=== PATIENT | female | born 1990 | race Two or more races ===

== ENCOUNTER 2024-06-07 22:51 | Emergency (ER) | payer MEDICAID, SELFPAY ==
[2024-06-07 23:00] VITALS: BP 129/84; PULSE 99; RESP 20; TEMP 36.9; O2SAT 97
--- NOTE | 2024-06-07 23:05 | PD.EDRME ---
Rapid Medical Screening Exam RME Arrival date/time: 06/07/24 22:51 34 year old female present to ED for c/o of abd pain today I have greeted and performed a focused initial assessment of this patient. A comprehensive ED assessment and evaluation of the patient, analysis of all test results, and completion of the medical decision making process will be conducted by additional ED providers. Chief Complaint: Abdominal Pain Time Seen by Provider: 06/07/24 22:53 Vital signs: Vital Signs Temperature 98.5 F 06/07/24 23:00 Pulse Rate 99 06/07/24 23:00 Respiratory Rate 20 06/07/24 23:00 Blood Pressure 129/84 06/07/24 23:00 Pulse Oximetry (%) 97 06/07/24 23:00 Oxygen Delivery Method Room Air 06/07/24 23:00
[2024-06-07] MEDS: ONDANSETRON ODT 4 MG TABRAP PO (23:20)
[2024-06-07] MEDS: MG HYD/AL HYD/SIME (Maalox Reg) SUSP 30 ML UDC PO (23:20)
[2024-06-07] MEDS: METOCLOPRAMIDE INJ 5 MG/ML VIAL 2 ML 10 MG IM (23:21)
--- NOTE | 2024-06-07 23:21 | XR_ITS ---
Examination: Abdomen sonogram, Limited Date and time of exam: June 08, 2024 0220 hrs. Indications: Generalized abdominal pain and abdominal distention beginning one week ago Technique: Real-time evans scale transabdominal sonographic images of the upper abdomen obtained. Findings: Contracted gallbladder Small sludge balls in the gallbladder, the largest 5 mm No definite gallstones Gallbladder wall 0.3 cm Common bile duct 0.3 cm Pancreatic head 3.0 cm Liver 16.8 cm fatty infiltration 18 mm area of focal fatty sparing Normal hepatopedal portal venous flow Patent IVC Impression: Recommend repeating the gallbladder study with fasting Negative for cholelithiasis, suspicious for gallbladder sludge Fatty liver with focal areas of fatty sparing
[2024-06-07 23:58] LABS: Basophils # (Auto) 0.1 Thou/mm3 (0.0-0.2); Basophils % (Auto) 1 % (0-2.5); Eosinophils # (Auto) 0.2 Thou/mm3 (0.0-0.5); Eosinophils % (Auto) 2 % (0-10); Hematocrit 42.2 % (36.0-46.0); Hemoglobin 14.1 g/dL (12.0-16.0); Immature Granulocytes % (Auto) 0 % (0-0); Immature Granulocytes Auto 0.03 Thou/mm3 (0.00-0.00); Lymphocytes # (Auto) 2.9 Thou/mm3 (1.0-4.8); Lymphocytes % (Auto) 28 % (10-50); Mean Corpuscular HGB Conc 33.4 g/dl (31.0-37.0); Mean Corpuscular Hemoglobin 28.8 pg (25.0-35.0); Mean Corpuscular Volume 86 fL (80-100); Monocytes # (Auto) 0.2 Thou/mm3 (0.0-0.8); Monocytes % (Auto) 2 % (0-12); Neutrophils % (Auto) 68 % (37-80); Nucleated Red Blood Cell % 0 /100 WBC (0); Platelet Count 315 Thou/mm3 (140-440); RDW Standard Deviation 40.1 fL (36.4-46.3); Red Blood Count 4.89 Miln/mm3 (4.00-5.20); White Blood Count 10.4 Thou/mm3 (3.6-11.0)
[2024-06-08] MEDS: KETOROLAC INJ 60 MG/2 ML VIAL 30 MG IM (00:04)
[2024-06-08 00:23] LABS: HCG,Qualitative Serum Negative
[2024-06-08 00:25] LABS: Alanine Aminotransferase 44 U/L (10-49); Albumin, Serum 4.8 gm/dL (3.5-5.0); Albumin/Globulin Ratio 1.8 (1.2-2.2); Alkaline Phosphatase 75 U/L (46-116); Anion Gap 8 (7-16); Aspartate Amino Transferase 29 U/L (0-34); BUN/Creatinine Ratio 11 Ratio (12-20); Bilirubin,Total 0.2 mg/dL (0.3-1.2); Blood Urea Nitrogen 11 mg/dL (9-23); Calcium 9.4 mg/dL (8.3-10.6); Calcium (Corrected) 9.4 mg/dL (8.5-10.1); Carbon Dioxide 26.9 mMol/L (20.0-31.0); Chloride 103 mMol/L (98-107); Globulin 2.6 gm/dL (2.3-3.5); Glucose 137 mg/dL (74-106); Lipase 42 U/L (12-53); Osmolality,Calculated 277 (275-295); Potassium 3.4 mMol/L (3.4-5.1); Sodium 138 mMol/L (136-145); Total Protein 7.4 gm/dL (5.7-8.2); eGFR > 60 See Note
[2024-06-08 01:23] LABS: Collection Type, Urine Voided; RBC,Urine 0 /hpf (0-3)
[2024-06-08 01:32] LABS: Bacteria,Urine 1+; Bilirubin,Urine Negative (Negative); Blood,Urine Negative (Negative); Clarity,Urine Turbid (Clear/Hazy); Color,Urine Yellow (Lt Yel-Yel); Glucose, Urine Negative (Negative); Ketones,Urine Negative (Negative); Leukocyte Esterase,Urine Positive (Negative); Nitrite,Urine Negative (Negative); Protein,Urine 1+ (Neg - Trace); Specific Gravity,Urine 1.029 (1.001-1.035); Squamous Epithelial Cell,Urine 11 /hpf (0-5); WBC,Urine 9 /hpf (0-5)
--- NOTE | 2024-06-08 03:47 | PRELIM_ITS ---
Right upper quadrant abdominal ultrasound. June 08, 2024 0220 hours Clinical history: Abdomen pain hx of gallstone Comparison: NoneFindings:The liver measures 16.8 cm and demonstrates heterogeneous echogenicity. No intrahepatic biliary ductal dilatation. There is a 1.8 x 0.8 x 1.1 cm hypoechoic are a on the right adjacent to the gallbladder, likely representing focal fatty sparing. The gallbladder is contracted. There are gallbladder polyps versus sludge balls within the gallbladder lumen, the lar gest measuring 0.5 cm. No definitive gallbladder calculus, wall thickening or pericholecystic fluid i s demonstrated. Sonographic Calzada sign is negative as per the technologist's note. The common bile d uct is normal in caliber at 2.5 mm. The pancreas is obscured by overlying bowel gas and not well demo nstrated. Impression:Contracted gallbladder. No definitive sonographic evidence of cholelithiasis, ac jing cholecystitis or biliary obstruction. Gallbladder polyps versus sludge as described. Fatty infil tration of the liver with focal fatty sparing areas. Recommend clinical and laboratory correlation. Report Electronically Signed By: Anu Johnson 06/08/2024 3:46:59 AM [EST]
[2024-06-08 04:58] VITALS: BP 96/60; PULSE 93; RESP 16; TEMP 37; O2SAT 97
[2024-06-08 07:36] VITALS: BP 109/80; PULSE 98; RESP 18; TEMP 37.1; O2SAT 99
--- NOTE | 2024-06-08 07:43 | EDNOTE_ITS ---
ED Abdominal Pain RME/HPI General Chief Complaint: Abdominal Pain Stated complaint: ABDOMINAL PAIN Time seen by provider: 06/07/24 22:53 Arrival date/time: 06/07/24 22:51 RME / HPI RME / HPI narrative: 06/07/24 22:51 34 year old female present to ED for c/o of abd pain today I have greeted and performed a focused initial assessment of this patient. A comprehensive ED assessment and evaluation of the patient, analysis of all test results, and completion of the medical decision making process will be conducted by additional ED providers. DR. MCCARTHY MAIN ED EVALUATION: 34 year old female presents to the Emergency Department with complaint of epigastric pain for 3 days, worse yesterday. Pain is described as aching and rated mild to moderate in severity. Associated symptoms constipation, last bowel movement yesterday morning, little. Patient denies any of the following: nausea, vomiting, diarrhea, or any other symptoms at this time. PMHx: GERD, gallstones. Social Hx: No tobacco, alcohol, or substance use. Related Data Previous Rx's ?Medication ?Instructions ?Recorded famotidine 40 mg tablet (Pepcid) 40 mg PO QDAY #30 tabs 06/08/24 sulfamethoxazole 800 1 tab PO BID 7 days #14 tabs 06/08/24 mg-trimethoprim 160 mg tablet (Bactrim DS) Allergies Allergy/AdvReac Type Severity Reaction Status Date / Time No Known Allergies Allergy Verified 06/07/24 22:57 Review of Systems Review of Systems Systems Reviewed: All systems reviewed, normal except as documented Narrative Review of Systems: GEN: No fever, no chills, no weight loss EYES: No discharge, no visual changes, no pain HEENT: No ear pain, no congestion, no sore throat PULM: No shortness of breath, no cough, no congestion CV: No chest pain, no dyspnea on exertion, no palpitations GI: No nausea, no vomiting, no diarrhea, + epigastric pain, + constipation : No frequency, no urgency and no dysuria MUSC/SKEL: No joint pain, no back pain SKIN: No rash PSYCH: No hallucinations, no depression HEME/LYMPH: No easy bleeding or bruising tendencies NEURO: No weakness, no headache Past Medical History Past Medical History CARDIAC: Negative Congestive Heart Failure RESPIRATORY: Negative Chronic Obstructive Pulmonary Disease (COPD) GASTROINTESTINAL: Positive Gall Bladder Disease (GALL STONES) GENITOURINARY: Negative Renal Disease ENDOCRINE: Negative Diabetes Mellitus Type 1 or Diabetes Mellitus Type 2 Social History SMOKING STATUS: Never smoker SUBSTANCE USE: does not use ALCOHOL: Never ED Exam Narrative Physical exam: GENERAL APPEARANCE: Well hydrated, well nourished, in no acute distress. VITALS: All vitals were reviewed and the pulse ox is 99% on room air which is normal according to my interpretation. HEENT: Normocephalic, atramatic, EOMI, EACs are patent. There is no bulge or retraction. Throat without erythema or exudate. Moist oromucosa. No jaundice NECK: Supple, no JVD or bruits. CARDIOVASCULAR: Heart regular without S3-S4 or murmur. No rubs or gallops. LUNGS/CHEST: Clear to auscultation bilaterally. No rales, rhonchi, or wheezing. Normal inspection. ABDOMEN: Mild tenderness in the epigastric area. Normal bowel sounds. No pulsatile masses. No rebound, rigidity, or guarding. No incarcerated hernia. EXTREMITIES: No edema, clubbing, or cyanosis. Intact CSM. Normal inspection and palpation. SKIN: Warm and dry without rashes. Normal inspection. MUSCULOSKELETAL: No gross deformity, full ROM all extremities. Normal inspection. NEURO: Alert and oriented x3. Cranial nerves II through XII grossly intact. There are no other motor or sensory deficits noted. PSYCHIATRIC: Normal mood and affect. No psychosis. Course Quality Measures none Orders Category Date Time Status US abdomen limited Stat Exams 06/07/24 23:21 Completed CBC Stat Lab 06/07/24 23:40 Completed CMP [Comprehensive Metabolic Panel] Stat Lab 06/07/24 23:40 Completed HCG,Qualitative Serum Stat Lab 06/07/24 23:40 Completed Lipase Stat Lab 06/07/24 23:40 Completed UA [Urinalysis] Stat Lab 06/08/24 00:40 Completed Ketorolac Inj [Toradol Inj] Med 06/07/24 23:22 Discontinued 30 mg IM X1 ONE Metoclopramide Inj [Reglan Inj] Med 06/07/24 23:05 Discontinued 10 mg IM X1 ONE Ondansetron Odt [Zofran Odt] Med 06/07/24 23:05 Discontinued 4 mg PO X1 ONE mg Hyd/Al Hyd/Kati Susp [Maalox Susp] Med 06/07/24 23:05 Discontinued 30 ml PO X1 ONE Vital Signs Vital signs: Vital Signs Temperature 98.5 F 06/07/24 23:00 Pulse Rate 99 06/07/24 23:00 Respiratory Rate 20 06/07/24 23:00 Blood Pressure 129/84 06/07/24 23:00 Pulse Oximetry (%) 97 06/07/24 23:00 Oxygen Delivery Method Room Air 06/07/24 23:00 Abdominal Pain [facility] MDM Narrative [facility] Narrative:: I, Ana Binu, am scribing for and in the presence of Dr. Mccarthy. CBC negative. CMP and lipase negative. UA is positive for UTI. test is negative. Ultrasound report is available as below. On exam there is very minimal discomfort over the epigastrium. Negative Calzada. Negative McBurney. No flank tender. Nondistention. No surgical sign. The patient will be di scharged home. I will put her on some antibiotic for the UTI. Also put the patient on Pepcid for the stomach pain. She is advised to follow-up closely with her PMD in the next couple of days for further care and recheck. Return to the emergency department if condition worsens or if new symptoms develop especially fever. Patient data External records reviewed:: None (no previous visits) Clinical information provided by:: patient Social determinants that could affect healthcare access:: none Patient has the following chronic illnesses:: GERD, gallstones. How is presenting disease/condition affected by chronic disease/condition?: exacerbated by Evaluation data The following diagnostics were reviewed and interpreted by me:: lab results and radiology exam(s) Lab and/or radiology exams considered but not ordered:: none Interpretation Summary: See above under MDM narrative. RADIOLOGY Procedure(s): US abdomen limited Accession Number(s): [id number] cc: Ray White MD; Steve English MD; Fermin Mccarthy PA-C~ Examination: Abdomen sonogram, Limited Date and time of exam: June 08, 2024 0220 hrs. Indications: Generalized abdominal pain and abdominal distention beginning one week ago Technique: Real-time evans scale transabdominal sonographic images of the upper abdomen obtained. Findings: Contracted gallbladder Small sludge balls in the gallbladder, the largest 5 mm No definite gallstones Gallbladder wall 0.3 cm Common bile duct 0.3 cm Pancreatic head 3.0 cm Liver 16.8 cm fatty infiltration 18 mm area of focal fatty sparing Normal hepatopedal portal venous flow Patent IVC Impression: Recommend repeating the gallbladder study with fasting Negative for cholelithiasis, suspicious for gallbladder sludge Fatty liver with focal areas of fatty sparing Dictated By: Steve English MD Medications / Prescriptions Medications or Prescriptions considered but not ordered:: none Medication administrations:: Medication Administration History Discontinued Medications Al Hydrox/Mg Hydrox/Simethicone (Mg Hyd/Al Hyd/Kati (Maalox Reg) Susp 30 Ml Udc) 30 ml PO X1 ONE Stop: 06/07/24 23:06 Last Admin: 06/07/24 23:20 Dose: 30 ml Documented By: OA Ketorolac Tromethamine (Ketorolac Inj 60 Mg/2 Ml Vial) 30 mg IM X1 ONE Stop: 06/07/24 23:23 Last Admin: 06/08/24 00:04 Dose: 30 mg Documented By: OA Metoclopramide HCl (Metoclopramide Inj 5 Mg/Ml Vial 2 Ml) 10 mg IM X1 ONE; Protocol Stop: 06/07/24 23:06 Last Admin: 06/07/24 23:21 Dose: 10 mg Documented By: OA Ondansetron HCl (Ondansetron Odt 4 Mg Tabrap) 4 mg PO X1 ONE; Protocol Stop: 06/07/24 23:06 Last Admin: 06/07/24 23:20 Dose: 4 mg Documented By: OA see above Consultations Consultation(s) initiated? (list below): No Diagnosis Differential diagnosis abdominal pain: abdominal pain, gastroenteritis and pancreatitis Most likely diagnosis given after review of the tests above:: Abdominal pain Urinary tract infection Gallbladder sludge Gastritis Admission Indicated Admission indicated?: not indicated Admission Request Was there a request for admission?: No Disposition Plan Disposition Plan: Discharge Discharge Attestation Discharge Attestation: The patient and all family members were given an opportunity to ask questions and understood the discharge instructions. Discharge instructions specifically effects, indications for sooner follow up or return to the emergency department, and the expected course of current diagnosis. Patient condition: Stable Discharge Plan Plan Patient Disposition: HOME (Self Care) Disposition Comment: Stable for DC home Prescriptions/Referrals Prescriptions/Med Rec: New sulfamethoxazole-trimethoprim [Bactrim DS] 800-160 mg tablet 1 tab PO BID 7 Days Qty: 14 0RF famotidine [Pepcid] 40 mg tablet 40 mg PO QDAY Qty: 30 0RF Referrals: Ray White MD [Primary Care Provider] - In 1 week Problem List Clinical Impression: Abdominal pain, Urinary tract infection Patient/Caregiver Discharge Instructions Education Materials: Abdominal Pain, ED CYSTITIS Female Adult Additional Instructions: You have bladder infection. Take antibiotic as prescribed. You have a stomach inflammation please take Pepcid. He can also take Maalox for the stomach pain. Ultrasound showing an early stone formation in the gallbladder. Please follow- up with your medical doctor in 3 days. Return the nearest emergency department if condition worsens or if new symptoms develop especially fever. Print Language: Austrian Stand Alone Forms: [employer] Award Info., Patient Portal Info Letter
[2024-06-08 08:23] VITALS: BP 102/63; PULSE 89; RESP 16; TEMP 36.6; O2SAT 96
[2024-06-08 08:51] VITALS: BP 102/63; PULSE 77; RESP 16; TEMP 36.4; O2SAT 100
== END 2024-06-08 08:51 | disposition home or self-care (01) ==
PROVIDERS: Physician Assistant; Emergency Provider Emergency Medicine; PCP Student in an Organized Health Care Education/Training Program
DX: N39.0 Urinary tract infection, site not specified (principal); K59.00 Constipation, unspecified
CPT/HCPCS: 36415; 76705; 80053; 81001; 83690; 84703; 85025; 96372; 99284; J1885; J2765; Q0162; A9270

== ENCOUNTER → 2024-07-02 | Outpatient (CLI) | payer MEDICAID, SELFPAY ==
[2024-07-02 13:29] LABS: HCG,Qualitative Serum Negative
== END | disposition home or self-care (01) ==
PROVIDERS: PCP Student in an Organized Health Care Education/Training Program; Referring Provider Student in an Organized Health Care Education/Training Program; Visit Provider Student in an Organized Health Care Education/Training Program
DX: Z98.51 Tubal ligation status (principal)
CPT/HCPCS: 36415; 84703

== ENCOUNTER → 2024-07-03 | Outpatient (CLI) | payer MEDICAID, SELFPAY ==
--- NOTE | 2024-07-03 09:00 | XR_ITS ---
Examination: Hysterosalpingogram Fluoroscopy 3 spot films of the pelvis Exam date and time: July 03, 2024 0949 hours INDICATIONS: Unable to conceive TECHNIQUE AND FINDINGS: Uterus successfully cannulated, however the inflated balloon with contrast injection with displaced to the cervix with repeated attempts No diagnostic visualization of the uterus IMPRESSION: Unsuccessful hysterosalpingogram
== END | disposition home or self-care (01) ==
PROVIDERS: PCP Student in an Organized Health Care Education/Training Program; Referring Provider Obstetrics & Gynecology; Visit Provider Obstetrics & Gynecology
DX: Z98.51 Tubal ligation status (principal)
CPT/HCPCS: 58340; 74740; Q9967

== ENCOUNTER → 2025-04-08 | Outpatient (CLI) | payer MEDICAID, SELFPAY ==
[2025-04-07 09:34] LABS: HCG Qualitative,Urine Negative
--- NOTE | 2025-04-08 08:30 | XR_ITS ---
Examination: CT abdomen and pelvis without contrast. Coronal 3-D reconstructions. Sagittal 2-D reconstructions. Date and time of exam: April 08, 2025, 0848 hours INDICATIONS: Abdominal pelvic swelling right lower abdominal pain 1 year CTDI: vol (mGy): 11.5 DLP: (mGycm): 722 Technique: Axial images of the abdomen have been obtained, 3 mm slice thickness Intravenous contrast material has not been administered. Low dose protocols were performed. One or more of the following dose reduction techniques were used; automated exposure control, adjustment of the mA and/or KV according to patient size, use of iterative reconstruction technique. Findings: Diffuse fatty infiltration throughout the liver no focal liver or splenic lesions No gallstones No pancreatic or adrenal mass No renal or ureteral calculi, no hydronephrosis Normal appendix No bowel obstruction Localized weakening of the anterior abdominal wall Tiny fat-containing umbilical hernia Negative for diverticulitis Anterior pelvic hypodense mass 6.4 cm Anteverted uterus with probable cyst in the cervical region Contracted urinary bladder Intact osseous structures IMPRESSION: Recommend pelvic sonography follow-up to assess 6.4 cm anterior pelvic hypodense mass
== END | disposition home or self-care (01) ==
PROVIDERS: Referring Provider Surgery; Visit Provider Surgery
DX: R19.00 Intra-abdominal and pelvic swelling, mass and lump, unspecified site (principal); Z32.00 Encounter for pregnancy test, result unknown
CPT/HCPCS: 74176; 81025